=== PATIENT | male | born 1960 | race Two or more races ===

== ENCOUNTER 2022-08-26 09:44 | Outpatient (CLI) | payer OTHER | END 2022-08-26 09:53 | disposition home or self-care (01) | LOC: TOM 09:44 | PROVIDERS: ATTEND Internal Medicine Gastroenterology | DX: Z12.11 Encounter for screening for malignant neoplasm of colon (principal) ==

== ENCOUNTER 2022-10-16 08:29 | Outpatient (CLI) | payer OTHER | END 2022-10-16 08:40 | disposition home or self-care (01) | LOC: TOM 08:29 | DX: J44.9 Chronic obstructive pulmonary disease, unspecified (principal); R91.8 Other nonspecific abnormal finding of lung field ==

== ENCOUNTER 2022-10-21 08:38 | Outpatient (CLI) | payer OTHER | END 2022-10-21 08:44 | disposition home or self-care (01) | LOC: TOM 08:38 | DX: N28.89 Other specified disorders of kidney and ureter (principal) ==